=== PATIENT | male | born 1935 | race Caucasian/White ===

== ENCOUNTER 2016-12-04 18:47 | Inpatient (IN) | payer OTHER, MEDICARE ==
[2016-12-04] MEDS ORDERED: ONDANSETRON 4 MG/2 ML VIAL IVP PRN (22:22)
[2016-12-04] MEDS ORDERED: NS 1,000 ML IV SCH (22:30)
[2016-12-05 05:35] LABS: % IMMATURE GRANULYOCYTES 0.4 % (0.0-1.1); ABSOLUTE IMMATURE GRANULOCYTES 0.02 10^3/uL (0.00-0.10); ADD DIFF? NO; ADD MORPH? NO; ADD SCAN? NO; ATYPICAL LYMPHOCYTE FLAG 0 (0-99); FRAGMENT RBC FLAG 0 (0-99); HEMATOCRIT 35.9 % (40.0-51.0); HEMOGLOBIN 11.9 g/dL (13.7-17.5); LEFT SHIFT FLG 0 (0-99); LIPEMIA HEMOLYSIS FLAG 80 (0-99); MEAN CELL HEMOGLOBIN 31.3 pg (27.9-34.1); MEAN CELL HEMOGLOBIN CONCENTR. 33.1 g/dL (32.4-36.7); MEAN CELL VOLUME 94.5 fL (81.5-99.8); MEAN PLATELET VOLUME 10.4 fL (8.7-11.7); PLATELET CLUMPS FLAG 10 (0-99); PLATELET COUNT 170 10^3/uL (150-400); RED CELL DISTRIBUTION WIDTH 13.6 % (11.5-15.2)
[2016-12-05 05:46] LABS: ALANINE AMINOTRANSFERASE 44 IU/L (21-72); ALBUMIN 3.3 g/dL (3.5-5.0); ALKALINE PHOSPHATASE 55 IU/L (38-126); ANION GAP 7 mEq/L (8-16); ASPARTATE AMINOTRANSFERASE 31 IU/L (17-59); BILIRUBIN,TOTAL 0.4 mg/dL (0.1-1.4); CALCIUM 9.8 mg/dL (8.5-10.4); CARBON DIOXIDE 25 mEq/l (22-31); CHLORIDE 108 mEq/L (97-110); CREATININE 1.9 mg/dL (0.7-1.3); GLOMERULAR FILTRATION RATE 34; GLUCOSE 86 mg/dL (70-100); POTASSIUM 4.8 mEq/L (3.5-5.2); SODIUM 140 mEq/L (134-144); TOTAL PROTEIN 5.9 g/dL (6.3-8.2)
--- NOTE | 2016-12-05 07:03 | GHP ---
[f rep st] HISTORY AND PHYSICAL DATE OF ADMISSION: 12/04/2016 SOURCE: The patient is able to provide the majority of the history, appears reliable. at dexter cole supplements history. CHIEF COMPLAINT: Lightheadedness and presyncope. HISTORY OF PRESENT ILLNESS: This is a very pleasant 81-year-old gentleman with a past medical histor y significant for chronic pain related to osteoarthritis and cervical spondylosis, status post a fusi on, who presents to the emergency department today from PCPs office with complaint of progressive lig htheadedness and a near-syncopal episode earlier today. The patient has been following up with PCP t o evaluate cause of patient's lightheadedness. The patient reports it can occur while at rest or fol lowing physical activity. During such episodes, the patient denies any vertigo. No chest pain, palp itations, shortness of breath, changes, or loss in vision. The patient reports that at home he does check his blood pressure and heart rate intermittently. He states his resting heart rate is approxim ately 46, but occasionally at home he will note a drop in his blood pressure with heart rate in the 8 0s and systolic blood pressure in the 80s/40s diastolic. The patient denies any recent illnesses. No head trauma. No headache. No changes in vision. No focal deficits reported. The patient reports that he remains quite active and he does ride his bicycle for 30-40 minutes on a regular basis, as we ll as goes to the gym regularly and lifts weights. He has had significant decline in his quality of his life secondary to the severity of his symptoms. The patient reports that he has been following closely with his PCP for evaluation of his presyncope. He has also been referred to hematology for further evaluation of anemia, which the patient reports has been improving on labs. He denies any event monitoring, but reports that EKG was completed at [facility] office. 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 REVIEW OF SYSTEMS: GENERAL: No fevers or chills. SKIN: The patient reports a slight rash behind h is ear on his neck, but no other sores. ENT: The patient reports chronic rhinorrhea and occasional hoarseness. EYES: The patient denies any acute change in vision or ocular pain. GI: No nausea, vom iting, or abdominal pain. : The patient denies any dysuria or hematuria. Musculoskeletal: The pa je complains of diffuse osteoarthritis, but greatest in his hands. NEURO: No numbness or tinglin g. No headache. The remainder of review of systems negative, except as noted above. ALLERGIES: No known drug allergies. PAST MEDICAL HISTORY: Significant for gout, cervical spondylosis, hypertension, chronic pain, osteoa rthritis and kidney stones. PAST SURGICAL HISTORY: Significant for bilateral carpal tunnel release, cervical fusion, right total hip arthroplasty with revision, bilateral total knee arthroplasty, lithotripsy with stent placement. FAMILY HISTORY: Significant for father with history of sudden cardiac , age 50s. SOCIAL HISTORY: The patient is and lives with his . He drinks 4 to 5 weeks, but not sig nificantly heavily. No tobacco or illicit drugs. CODE STATUS: Full. The patient desires his to act as proxy if needed. PHYSICAL EXAMINATION: Blood pressure on arrival 130/82, heart rate 63, respiratory rate 14, O2 sat 9 2% on room air. Temperature 37.1. GENERAL: No acute distress. Pleasant, elderly gentleman is restin g comfortably in bed, appears slightly younger than stated age. Normocephalic, atraumatic. EYES: E xtraocular muscles intact. Pupils equal, round and symmetric. No scleral icterus or conjunctival in jection. ENT: Mucous membranes appear slightly dry. No oropharyngeal erythema or exudates. NECK: Supple. Trachea midline. CV: Regular rate and rhythm. No murmurs, rubs or gallops appreciated. RESPIRATORY: Lungs are clear to auscultation bilaterally. No wheezes, rales, or rhonchi appreciated . ABDOMEN: Positive bowel sounds, soft, nontender to palpation. No rebound, guarding, or masses ap preciated. : Whitfield in place. No suprapubic tenderness to palpation. EXTREMITIES: No cyanosis, clubbing, or edema appreciated. The patient does have some trace lower extremity edema at the distal lower leg on the left greater than the right. NEURO: Grossly nonfocal exam. The patient without a ny facial drooping. Sits and stands without assist. LABORATORY DATA: Copy from [facility] is brought in by the patient. This was draw n on 11/27/2016. WBC 5.8, H and H 13.2 and 40.6, MCV 96, platelet count 178. Glucose 91, BUN 29, cr eatinine 1.89. Sodium 143, potassium 4.4, chloride 108, CO2 is 25.7, calcium 9.4, total protein 7, a lbumin 3.8, total bili 0.4, 67, AST 27, 29 and GFR 34. The patient with additi onal testing for IgG, quant, IgM 115. Additional studies: Free kappa/lambda and K/L ratio serum with light chains positive for 27.64 mg/L. Lambda light chains free is 30.64. 0.9. EKG: Unable to review. However, the patient reports that PCP plans to bring to hospital in the [facility]. On telemetry, the patient showing AV block with occasional pause and occasional conversion to d ropped beats. ASSESSMENT/PLAN: This is a very pleasant 81-year-old gentleman who presents complaining of progressi ve lightheadedness and presyncopal episode today. 1. Presyncope. Differential diagnosis to consider is cardiac block, as the patient has exhibited so me pauses and dropped some beats consistent with a type 2 AV block, versus less likely PE. The patie nt does not have any dyspnea versus orthostatic hypotension, versus others. The patient will be admi tted to observation on the PCU for telemetry monitoring. Orthostatics will be obtained in the [facility]. Fall precautions will be put into place. The patient will ambulate with assist only. Will monit or closely on telemetry. 2. Anemia. The patient undergoing workup. Slight increase in light chains is present. We will try to obtain remainder of studies. H and H are nearly normal at this time and no evidence of bleeding. We will continue to monitor closely. 3. Chronic pain. Resume the patient's home pain medications. 4. Fluids, electrolytes and nutrition: IV fluids overnight for some gentle hydration. Electrolyte replacement p.r.n. and diet will be cardiac. 5. GI: The patient with a history of GERD. Will continue to monitor closely. 6. Benign essential hypertension. We will hold off on the patient's lisinopril and HCTZ at this leslie e secondary to mildly elevated blood pressures. The patient denies any previous history of chronic k idney disease, but appears this could be progressive in the setting of patient's testing, as above. 7. Benign prostatic hypertrophy. Continue tamsulosin. 8. Trazodone for insomnia. Continue home medication. 9. Code status: Full. 10. Disposition: The patient admitted to observation on the PCU for close monitoring on telemetry. /[id number]/MODL
--- NOTE | 2016-12-05 08:44 | CPEKG ---
Heart Rate: 52 RR Interval: 1154 P-R Interval: 306 QRSD Interval: 160 QT Interval: 464 QTC Interval: 432 P [place]: 0 QRS [place]: -95 T Wave [place]: -23 EKG Severity - ABNORMAL ECG - EKG Impression: SINUS RHYTHM EKG Impression: FIRST DEGREE AV BLOCK EKG Impression: RBBB AND LAFB Electronically Signed By: Anneliese Birmingham 05-Dec-2016 09:54:27
[2016-12-05] MEDS ORDERED: ENOXAPARIN 40 MG/0.4 ML SYR SC SCH (09:00)
[2016-12-05] MEDS ORDERED: NS 1,000 ML IV ONE (13:50)
--- NOTE | 2016-12-05 14:49 | HOSPPROG ---
Hospitalist Progress Note Assessment/Plan: # acute presyncope- patient with dizziness sent from clinic for evaluation- the patient remains disease even after initial hydration and monitoring Telemetry (personally reviewed and interpreted) remains in sinus heart rate 50s to 70s oxygen saturations 95% on RA - hold antihypertensive - normal saline bolus - hold tamsulosin - trans-thoracic echocardiogram # acute kidney injury- creatinine 1.9 -unclear history of recent use of antihypertensives including ISA inhibitor and hydrochlorothiazide - check urinalysis - check renal ultrasound - normal saline bolus # proph - lovenox as long as GFR remains above 30 # diet- cardiac # disposition- greater than 2 midnights as the patient is presenting with persistent complaints of dizziness and presyncope requiring evaluation I have discussed the case with the RN- plan for renal imaging in the a.m. followed by a treadmill stress testing Subjective: still dizzy Objective: Vital Signs Temp Pulse Resp BP Pulse Ox 36.9 C 50 L 14 153/90 H 95 12/05/16 11:24 12/05/16 11:24 12/05/16 11:24 12/05/16 11:24 12/05/16 11:24 Laboratory Results 12/05/16 04:33 12/05/16 04:33 12/04/16 12/05/16 12/06/16 05:59 05:59 05:59 Intake Total 800 Output Total 325 Balance 475 - Physical Exam Constitutional: appears nourished Eyes: anicteric sclera Ears, Nose, Mouth, Throat: moist mucous membranes Cardiovascular: regular rate and rhythym, systolic murmur Respiratory: no respiratory distress Gastrointestinal: normoactive bowel sounds Genitourinary: no bladder fullness Skin: warm Musculoskeletal: No asymmetric calves Neurologic: AAOx3 Psychiatric: interacting appropriately Lymph, Heme, Immunologic: no cervical LAD ICD10 Worksheet Patient Problems: Problems Problem Status Onset Arthrodesis status Acute Cervical radiculitis Acute Neck pain Acute
--- NOTE | 2016-12-05 16:22 | ECHO ---
[email or web address] [address] [address] Main: [phone] Fax: Transthoracic Echocardiogram Name: CARMEN GARSIA MR#: [id number] Study Date: 12/05/2016 Study Time: 03:10 PM Date of : 1935 Age: 81 year(s) Height: 185.4 cm (73 in.) Weight: 89.81 kg (198 lb.) BSA: 2.14 m2 Gender: Male Examination: Echo Indication: Image Quality: Contrast: Requested by: Noy Henriquez BP: 153 mmHg/90 mmHg Heart Rate: Rhythm: Indication: Procedure Staff Ordering Physician: RULA Bar Manager: Esteban Bui Reading Physician: Israel Reynolds Conclusions: ? Normal global systolic LV function (EF 72 %). ? Normal RV function. ? The left atrium is mildly dilated. ? Trivial mitral valve regurgitation. ? Trivial to mild aortic valve regurgitation. ? Trivial tricuspid valve regurgitation. Measurements: Chambers Valvular Assessment AV/MV Valvular Assessment TV/PV Normal Normal Normal Name Value Range Name Value Range Name Value Range Ao [place] (MM): 3.7 cm (2.2 cm-3.7 AV Vmax: 1.30 m/s (1 m/s-1.7 TR Vmax: 2.36 mm/s ( - ) cm) m/s) TR PGmax: 22 mmHg ( - ) IVSd (2D): 1.2 cm (0.6 cm-1.1 AV maxP mmHg ( - ) syst. PAP: 27 mmHg ( - ) cm) LVOT Vmax: 0.88 m/s (0.7 m/s-1.1 PV Vmax: 0.72 cm/s (0.6 m/s-0.9 LVDd (2D): 4.7 cm (4.2 cm-5.9 m/s) m/s) cm) AR (PHT): 662 ms ( - ) PV PGmax: 2 mmHg ( - ) LVDs (2D): 2.8 cm (2.1 cm-4 MV E Vmax: 0.59 cm/s ( - ) cm) MV A Vmax: 0.44 cm/s ( - ) LVPWd (2D): 1.0 cm (0.6 cm-1 MV E/A: 1.34 ( - ) cm) LVEF (2D): 72 (>=54 %) Continued Measurements: Chambers Valvular Assessment AV/MV Valvular Assessment TV/PV Name Value Name Value Name Value LA Area: 26.5 cm? MV E/E' Septal: 13.10 CVP (est.): 5 LA Volume: 92 ml MV E/E' Lateral: 8.60 LA Volume Index: 43.0 ml/m? AR Vmax: 2.38 cm/s Patient: CARMEN GARSIA Study Date: 12/05/2016 Page 1 of 2 03:10 PM Findings: Left Ventricle: Normal size left ventricle. Normal global systolic LV function (EF 72 %). Diastolic LV function normal for age. Right Ventricle: Normal size right ventricle. Normal RV function. Left Atrium: The left atrium is mildly dilated. Right Atrium: The right atrium is normal in size. Mitral Valve: The mitral valve is normal in appearance and function. Trivial mitral valve regurgitation. Aortic Valve: The aortic valve is normal in appearance and function. The aortic valve is tri-leaflet and functions normally. Trivial to mild aortic valve regurgitation. Tricuspid Valve: The tricuspid valve is normal in appearance and function. Trivial tricuspid valve regurgitation. Pulmonic Valve: The pulmonic valve is normal in appearance and function. Great Vessels: Pericardium: No pericardial effusion. Bradycardia (No Signature Object) Patient: CARMEN GARSIA Study Date: 12/05/2016 Page 2 of 2 03:10 PM [id number]
--- NOTE | 2016-12-05 16:28 | ASMTCMCOM ---
CM Note CM Note Notes: Case Management met with patient and regarding discharge poc. Discussed the possibility of home health care, patient declines. Anticipate discharge home with when medically stable. Case Management available for changes/needs. Date Signed: 12/05/2016 04:27 PM Electronically Signed By:Marilu Yang RN
[2016-12-05 18:40] LABS: COLOR YELLOW; LEUKOCYTE ESTERASE,URINE NEGATIVE (NEGATIVE); NITRITE,URINE NEGATIVE (NEGATIVE)
[2016-12-05] MEDS ORDERED: TAMSULOSIN HCL 0.4 MG CAP PO SCH (21:00)
[2016-12-06 06:04] LABS: ANION GAP 11 mEq/L (8-16); CALCIUM 9.7 mg/dL (8.5-10.4); CARBON DIOXIDE 22 mEq/l (22-31); CHLORIDE 110 mEq/L (97-110); CREATININE 1.7 mg/dL (0.7-1.3); GLOMERULAR FILTRATION RATE 39; GLUCOSE 82 mg/dL (70-100); POTASSIUM 4.4 mEq/L (3.5-5.2); SODIUM 143 mEq/L (134-144)
[2016-12-06] MEDS ORDERED: REGADENOSON 0.4 MG/5 ML SYR IVP ONE (11:15)
--- NOTE | 2016-12-06 12:10 | CPIP ---
[f rep st] INVASIVE CARDIAC PROCEDURE PROCEDURE: Nuclear stress test. The patient came to the hospital due to chief complaint of having syncope. He has been having a long history of feeling lightheaded and intermittently being really quite lighth eaded. There was nothing specifically that caused it. The episode happened when he was working out earlier, but he has had it at times when he is resting and not doing anything at all. He has been having some of these symptoms since May, and when he saw his physician, there was an ev aluation for anemia to make sure that was not causing the symptoms. Symptoms have persisted and prog ressed now to syncope. He had given informed consent to do a nuclear stress test. He got on the sia admill, and as I watched, his EKG shows the right bundle branch block, left anterior fascicular block , and then first degree block, and I decided to stop the test at 20 seconds. He was not dizzy, light headed, or having of symptoms, but it seemed quite clear that he needs a pacemaker. Dr. Thony Kaur was consulted from the electrophysiology service, and he is going to arrange for further care for th e patient with a pacemaker. He has talked to the patient about the pacemaker, and the patient is goi ng to talk to his . All the patient's questions were answered by Thony and myself, and we are going to just wait until he talks to his and decide what to do further. But at this point in ti me, we do not want to stress the patient. He has already had resting nuclear images done. There wer e no complications from his 20 seconds on the treadmill. He will be seen in followup in clinic by my self or Dr Kaur, and we can arrange for nuclear imaging study to be completed if it is indicated down the road. /[id number]/MODL
[2016-12-06] MEDS ORDERED: DIAZEPAM 5 MG TAB PO ONE (12:43)
[2016-12-06] MEDS ORDERED: BACITRACIN IRRIGATION/NS 50,000 UNITS/1,000 ML BTL IRR ONE (12:43)
[2016-12-06] MEDS ORDERED: diphenhydrAMINE 25 MG CAP PO ONE (12:43)
[2016-12-06] MEDS ORDERED: NS 1,000 ML IV ONE (12:43)
[2016-12-06] MEDS ORDERED: ceFAZolin 2 GM/DEXTROSE 100 ML IV ONE (13:03)
[2016-12-06 13:37] LABS: % IMMATURE GRANULYOCYTES 0.2 % (0.0-1.1); ABSOLUTE IMMATURE GRANULOCYTES 0.01 10^3/uL (0.00-0.10); ADD DIFF? NO; ADD MORPH? NO; ADD SCAN? NO; ATYPICAL LYMPHOCYTE FLAG 10 (0-99); FRAGMENT RBC FLAG 0 (0-99); HEMATOCRIT 38.5 % (40.0-51.0); HEMOGLOBIN 12.9 g/dL (13.7-17.5); LEFT SHIFT FLG 0 (0-99); LIPEMIA HEMOLYSIS FLAG 80 (0-99); MEAN CELL HEMOGLOBIN 31.7 pg (27.9-34.1); MEAN CELL HEMOGLOBIN CONCENTR. 33.5 g/dL (32.4-36.7); MEAN CELL VOLUME 94.6 fL (81.5-99.8); MEAN PLATELET VOLUME 10.2 fL (8.7-11.7); PLATELET CLUMPS FLAG 0 (0-99); PLATELET COUNT 180 10^3/uL (150-400); RED BLOOD CELL COUNT 4.07 10^6/uL (4.40-6.38); RED CELL DISTRIBUTION WIDTH 13.4 % (11.5-15.2)
[2016-12-06 13:44] LABS: INR 1.08 (0.83-1.16); PROTIME(PATIENT) 13.9 SEC (12.0-15.0)
[2016-12-06 13:45] LABS: APTT 28.7 SEC (23.0-38.0)
[2016-12-06] MEDS ORDERED: LIDOCAINE 1% 300 MG/30 ML SDV ONE (14:07)
[2016-12-06] MEDS ORDERED: LIDO/EPI 1% **for epidural** 30 ML SDV ONE (14:07)
[2016-12-06] MEDS ORDERED: BUPIVACAINE 0.5% 30 ML SDV ONE (14:07)
[2016-12-06] MEDS ORDERED: fentaNYL 100 MCG/2 ML INJ ONE ×2 (14:08→15:13)
[2016-12-06] MEDS ORDERED: MIDAZOLAM 2 MG/2 ML VIAL ONE ×2 (14:09→15:14)
[2016-12-06] MEDS ORDERED: IOPAMIDOL (ISOVUE-300) 150 ML BTL ONE (15:07)
--- NOTE | 2016-12-06 16:42 | CPEKG ---
Heart Rate: 64 RR Interval: 938 P-R Interval: 176 QRSD Interval: 154 QT Interval: 472 QTC Interval: 487 P [place]: 107 QRS [place]: -72 T Wave [place]: 117 EKG Severity - ABNORMAL ECG - EKG Impression: A-V DUAL-PACED RHYTHM Electronically Signed By: Nader Delgadillo 07-Dec-2016 11:04:42
--- NOTE | 2016-12-06 18:41 | SOAPPROG ---
SOAP Progress Note Assessment/Plan: Assessment: 1. Long-standing left hydroureteronephrosis w/ renal atrophy - likely due to proximal ureteral stricturing from previously-impacting ureteral calculus. He is currently asymptomatic from this condition. 2. Prostate cancer, s/p brachytherapy in ~ 2004. Plan: 1. No acute intervention is warranted. 2. Instructed pt. to [facility] w/ Dr. Durate following discharge. See full dictated consult note (Dict. # [id number]). Objective: Vital Signs Temp Pulse Resp BP Pulse Ox 36.7 C 68 20 163/83 H 94 12/06/16 16:50 12/06/16 16:50 12/06/16 16:50 12/06/16 16:50 12/06/16 16:50 Laboratory Results 12/06/16 13:20 12/06/16 04:35 12/05/16 12/06/16 12/07/16 05:59 05:59 05:59 Intake Total 800 400 Output Total 325 1625 Balance 475 -1225 PT 13.9 SEC (12.0-15.0) 12/06/16 13:20 INR 1.08 (0.83-1.16) 12/06/16 13:20 ICD10 Worksheet Patient Problems: Problems Problem Status Onset Cervical radiculitis Acute Neck pain Acute Arthrodesis status Acute
--- NOTE | 2016-12-06 19:42 | GCON ---
[f rep st] CONSULTATION UROLOGY CONSULTATION DATE OF CONSULTATION: 12/06/2016 REFERRING PHYSICIAN: Hospitalist Service REASON FOR CONSULTATION: Left hydronephrosis. HISTORY: This is an 81-year-old gentleman who was admitted for evaluation of syncope earlier today. As part of an initial evaluation, patient underwent a noncontrast CT scan of the abdomen and pelvis, and this revealed left hydronephrosis and hydroureter which is detailed below. The patient denies a ny recent dysuria, gross hematuria, changes in his typical voiding pattern, flank pain, abdominal leonides n, no recent treatment for UTIs. He does have a longstanding history of mildly obstructing urinary symptoms that include some decrease d force of stream and nocturia for which he has been taking Flomax. He also has a prior history of t reatment for prostate cancer, treated with brachytherapy in approximately 1999. He also has a history of recurrent nephrolithiasis for at least the last 15 years. 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 He subsequently underwent left ureteroscopy and balloon dilation of l eft ureteral stricture by Dr. Duarte in March 2015. The patient has not been seen for urologic fo llowup since February 2016, and has not had any new problems since that time. PAST MEDICAL HISTORY: Notable for an admission to evaluate recent syncope, hypertension, prostate ca ncer (as above), recurrent nephrolithiasis (as above), known history of left proximal ureteral strict ure, chronic pain. PAST SURGICAL HISTORY: Includes ureteroscopy, left ureteroscopy in March 2015 and October 2014 (as above), cervical fusion, right total hip arthroplasty with subsequent revision, bilateral total knee arthroplasty, extracorporeal shockwave lithotripsy remotely. ADMISSION MEDICATIONS: Include tamsulosin 0.4 mg daily, lisinopril/HCTZ 10/12.5 mg daily, trazodone 150 mg q.h.s., vitamin supplements. ALLERGIES: None known. FAMILY HISTORY: Not contributory. SOCIAL HISTORY: The patient and his live in the [facility]. He denies use of tobacco or alc ohol products. REVIEW OF SYSTEMS: Unremarkable, other than mentioned above in the HPI and admission for evaluation of syncope (also, as noted above). PHYSICAL EXAM: GENERAL: Well-developed, well-nourished white male, lying supine in bed in no acute distress. He is about to eat a sandwich. VITAL SIGNS: Blood pressure 163/83, pulse 68, respiration s 20, temperature 36.7 Celsius, oxygen saturation is 94% on room air. Height 187 cm, weight 89 kg, BMI 25.4. HEENT: Normocephalic, atraumatic. NECK: Supple. CHEST: Un labored respiratory pattern. HEART: Regular rate. ABDOMEN: Soft without palpable abnormalities. BACK: No CVA tenderness. NEUROLOGIC: He is alert and oriented. He answers all questions appropria tely with normal mood and affect. PERTINENT LABORATORY: Chemistry panel notable for creatinine 1.7, which compares to 1.9. According to review of my office chart, this is close to baseline. Admission urinalysis was completely negative. RADIOGRAPHIC STUDIES: Noncontrast abdominopelvic CT scan today: Upon my review, notable for the fol lowing renal calculi: Punctate right upper pole and right mid pole, 5 mm right upper pole, 6 mm righ t lower pole, and 4 mm left lower pole calculi. There was severe left hydronephrosis and hydroureter down to about L4. There appears to be 1 or more small calculi that are intraluminal or embedded in the ureteral wall, or both. The ureter appears to be normal distal to that point. There was also si gnificant left renal cortical atrophy. IMPRESSION: 1. Fairly longstanding chronic left hydronephrosis and hydroureter due to a left proximal ureteral s tricture. 2. Bilateral asymptomatic nephrolithiasis. 3. Significant left renal cortical atrophy. 4. Possible left proximal ureteral calculi: As detailed above in description of the CT radiographic findings. 5. Remote history of prostate cancer, status post brachytherapy. 6. Long-standing lower urinary tract symptoms, fairly well controlled with Flomax. PLAN: 1. I do not believe any of his urologic issues are related to his admission issues. He appears to h ave been totally asymptomatic since last seeing Dr. Duarte in February 2016. Nonetheless, urologic follow up is warranted. 2. Please have the patient schedule an appointment with Dr. Duarte following hospital discharge. I have also impressed upon the importance of him to do the same. 3. I have also told him it is very important that he drink large amounts of water, at least 2 L shaquille y, to reduce his risk of forming more stones. Particularly since he has essentially 1 functional kid brea and at least 2 stones on that side. He admittedly drinks only 1-2 small cups of water daily. /[id number]/MODL
[2016-12-06] MEDS: ACETAMINOPHEN 325 MG TAB PO PRN (20:13)
--- NOTE | 2016-12-06 21:37 | HOSPPROG ---
Hospitalist Progress Note Assessment/Plan: # acute presyncope- patient with dizziness sent from clinic for evaluation- the patient remains disease even after initial hydration and monitoring Telemetry (personally reviewed and interpreted) remains in sinus heart rate 50s to 70s - EKG with trifascicular block oxygen saturations 95% on RA Echo(reviewed ) normal LV function - carotid doppler (reviewed ) normal flow - hold antihypertensives - received saline bolus - hold tamsulosin - plan for pacemaker placement today - likely complete cardiac risk stratification as outpt if stable # acute kidney injury- creatinine 1.9 -> 1.7 unclear history of recent use of antihypertensives including ISA inhibitor/hydrochlorothiazide (when not rxd by MD) urinalysis bland - renal US (reviewed ) sever left hydronephrosis - check renal ultrasound - normal saline boluscont hold BP meds - consult urology for recs related to hydronephrosis # proph - lovenox as long as GFR remains above 30 # diet- cardiac # disposition- greater than 2 midnights as the patient is presenting with persistent complaints of dizziness and presyncope requiring evaluation I have discussed the case with Cardiology - with trifasciculr block and persistent sx - pt has clear indication for pacemaker Subjective: remains dizzy overnight Objective: Vital Signs Temp Pulse Resp BP Pulse Ox 36.7 C 66 18 165/91 H 98 12/06/16 19:43 12/06/16 19:43 12/06/16 19:43 12/06/16 19:43 12/06/16 19:43 Laboratory Results 12/06/16 13:20 12/06/16 04:35 12/05/16 12/06/16 12/07/16 05:59 05:59 05:59 Intake Total 800 400 Output Total 325 1625 300 Balance 475 -1225 -300 PT 13.9 SEC (12.0-15.0) 12/06/16 13:20 INR 1.08 (0.83-1.16) 12/06/16 13:20 - Physical Exam Constitutional: appears nourished Eyes: anicteric sclera Ears, Nose, Mouth, Throat: moist mucous membranes Cardiovascular: regular rate and rhythym, systolic murmur Respiratory: no respiratory distress Gastrointestinal: normoactive bowel sounds Genitourinary: no bladder fullness Skin: warm Musculoskeletal: No asymmetric calves Neurologic: AAOx3 Psychiatric: interacting appropriately Lymph, Heme, Immunologic: no cervical LAD ICD10 Worksheet Patient Problems: Problems Problem Status Onset Arthrodesis status Acute Cervical radiculitis Acute Neck pain Acute
[2016-12-07 04:30] VITALS: RESP 16
[2016-12-07 05:58] LABS: % IMMATURE GRANULYOCYTES 0.3 % (0.0-1.1); ABSOLUTE IMMATURE GRANULOCYTES 0.02 10^3/uL (0.00-0.10); ADD DIFF? NO; ADD MORPH? NO; ADD SCAN? NO; ATYPICAL LYMPHOCYTE FLAG 0 (0-99); FRAGMENT RBC FLAG 0 (0-99); HEMATOCRIT 37.6 % (40.0-51.0); HEMOGLOBIN 12.9 g/dL (13.7-17.5); LEFT SHIFT FLG 0 (0-99); LIPEMIA HEMOLYSIS FLAG 90 (0-99); MEAN CELL HEMOGLOBIN 31.9 pg (27.9-34.1); MEAN CELL HEMOGLOBIN CONCENTR. 34.3 g/dL (32.4-36.7); MEAN CELL VOLUME 92.8 fL (81.5-99.8); MEAN PLATELET VOLUME 9.8 fL (8.7-11.7); PLATELET CLUMPS FLAG 0 (0-99); PLATELET COUNT 165 10^3/uL (150-400); RED BLOOD CELL COUNT 4.05 10^6/uL (4.40-6.38); RED CELL DISTRIBUTION WIDTH 13.2 % (11.5-15.2)
[2016-12-07 06:12] LABS: ANION GAP 11 mEq/L (8-16); CALCIUM 9.9 mg/dL (8.5-10.4); CARBON DIOXIDE 19 mEq/l (22-31); CHLORIDE 111 mEq/L (97-110); CREATININE 1.5 mg/dL (0.7-1.3); GLOMERULAR FILTRATION RATE 45; GLUCOSE 86 mg/dL (70-100); POTASSIUM 4.4 mEq/L (3.5-5.2); SODIUM 141 mEq/L (134-144)
[2016-12-07 07:33] VITALS: TEMP 98.1
--- NOTE | 2016-12-07 08:57 | CPEKG ---
Heart Rate: 63 RR Interval: 952 P-R Interval: 184 QRSD Interval: 152 QT Interval: 440 QTC Interval: 451 P [place]: 53 QRS [place]: -78 T Wave [place]: 90 EKG Severity - ABNORMAL ECG - EKG Impression: SINUS RHYTHM EKG Impression: IVCD, CONSIDER ATYPICAL RBBB EKG Impression: LEFT VENTRICULAR HYPERTROPHY EKG Impression: CONSIDER ANTERIOR INFARCT Electronically Signed By: Anneliese Birmingham 07-Dec-2016 11:55:02
--- NOTE | 2016-12-07 10:02 | EPPROC ---
Electrophysiology Procedure Note: PROCEDURE PERFORMED: Implantation of an A/V Pacemaker Subclavian vein angiography Fluoroscopy INDICATION: This is a 81 yr old with presyncope, lightheadedness and trifascicular block. In view of the episodes of lightheadedness and trifascicular block, it was decided to implant a dual chamber pacemaker. PROCEDURE NOTE: Patient presented to the cardiac catheterization laboratory in a fasting, post absorptive state. Cardiac medical laboratory technical officer nurse administered moderate sedation. The left infraclavicular area was prepped and draped in the usual sterile fashion. Lidocaine plus bupivacaine was used for local anesthesia. Left subclavian venography was performed by injection of iodinated contrast into the left antecubital vein. This was done to assure patency of the vein and also to assess for any anatomical aberrations. Using a combination of blunt and sharp dissection and electrocautery, the dissection was carried down to the prepectoral fascia. All bleeding was controlled with electrocautery. Fluoroscopy was utilized during the entire procedure for venous access and placement of the leads. Using the usual technique, left cephalic vein access was attempted but no cephalic vein was found. Hence, it was decided to try subclavian access. Using usual technique, left subclavian access was obtained. A glidewire was placed. Through this initially a 9F and later a 7F sheath was passed. Placement of the guidewires into the venous system was confirmed by low-pressure blood return and also by visualizing the guidewires advancing into the inferior vena cava. A purse string suture was applied around the guidewires. An active fixation ventricular lead was advanced into the right ventricular apex and screwed in place. An active fixation atrial lead was advanced into the right atrial appendage and screwed in place. The peel away sheaths were removed. Pacing thresholds, sensing parameters and lead impedances were measured. There was no diaphragmatic stimulation at maximum output. The leads were sutured to the prepectoral fascia with 3 nonabsorbable sutures each. The pocket was created and it was flushed using antibiotic solution. It was inspected for any bleeding. The leads were attached to the pacemaker securely. The pacemaker was inserted into the pocket and secured in place with a nonabsorbable suture. Fluoroscopy was performed in [place] and [place] planes to verify right-sided placement of the leads. Also fluoroscopy of the pacemaker pocket was performed. The pacemaker pocket was closed in 3 layers with absorbable vicryl sutures. Steristrips were placed. Appropriate dressing was applied. The patient left the cardiac catheterization laboratory in stable condition. Serial Numbers: Device: [employer] Huey Assurity MRI SN [id number] Atrial Lead: [employer] Huey Tendril 8TC SN [id number] Ventricular Lead: [employer] Huey Tendril 8TC SN [id number] Stimulation Thresholds & Impedance Measurements: Atrial Lead 3.1mV, 0.4@0.5ms, 477Ohms Ventricular Lead 14.6mV, 0.5@0.5ms, 496Ohms [place] Pacing Parameters Pacing mode: DDD Lower rate: 50 Upper tracking rate: 120 Upper sensor rate: 120 Patient Problems: Problems Problem Status Onset Arthrodesis status Acute Cervical radiculitis Acute Neck pain Acute
[2016-12-07] MEDS: ACETAMINOPHEN 325 MG TAB PO PRN (10:17)
[2016-12-07 11:59] VITALS: BP 138/85; PULSE 65; O2SAT 96
--- NOTE | 2016-12-07 17:05 | ASDISCHSUM ---
Discharge Information Plan Status:Home with No Needs Medically Cleared to Leave:12/07/2016 Discharge Date:12/07/2016 12:39 PM CM D/C Disposition:Home, Routine, Self-Care ADT D/C Disposition:Home, Routine, Self-Care Projected Discharge Date:12/07/2016 12:00 AM Transportation at D/C: Discharge Delay Reason: Follow-Up Date:12/07/2016 12:00 AM Discharge Slot: Final Diagnosis: Placement Information Patient Contact Information Contact Name:NIKKI Relationship: Address:[address] City:[place] Alternate Phone: [facility]/Zip Code:[place] [address] Email: Financial Information Financial Class: Primary Plan Desc:MEDICARE INPATIENT Primary Plan Number:[id number] Secondary Plan Desc:[employer]/MDR SUPPLEMENT Secondary Plan Number:[id number] Assessment Information [facility] CM Progress Note CM Note CM Note Notes: Case Management met with patient and regarding discharge poc. Discussed the possibility of home health care, patient declines. Anticipate discharge home with when medically stable. Case Management available for changes/needs. Date Signed: 12/05/2016 04:27 PM Electronically Signed By:Marilu Yang RN Intervention Information Intervention Type:*EDDIE-Signed Date of Service:12/05/2016 09:27 AM Patient Type:Observation Staff Member:Mady Michael Hours: Discipline: Severity: Comment:
--- NOTE | 2016-12-07 17:28 | GDS ---
[f rep st] DISCHARGE SUMMARY ADMIT DIAGNOSIS: Syncope DISCHARGE DIAGNOSES: 1. Syncope. 2. Pacemaker placement. HISTORY OF PRESENT ILLNESS: The patient came into the hospital having had a syncopal episode. We we re asked to consult. It was noted as he started a treadmill stress test that he had a trifascicular block with pauses. The test was stopped, and he was set up for a pacemaker placement with Dr. Tiara Kaur yesterday afternoon. A [employer] Huey pacemaker was placed with no complications. He was returned to PCU for overnight observation, where he has done well. He has a paced rhythm with the pacer check today showing normal function. He has been up ambulating and is eager for discharge. MEDICATIONS: He will go home on: Trazodone 150 mg at bedtime, lisinopril/hydrochlorothiazide 10/12. 5 mg daily, vitamin B daily, multivitamin 1 daily, herbal supplements 1 daily, Tylenol 325 mg 1 table t daily as needed, Flomax 0.4 mg at bedtime, Tylenol 325 mg to 650 mg every 4 hours as needed for leonides n. ALLERGIES: He has no known allergies. EXAM: VITAL SIGNS: On day of discharge, blood pressure 138/85, heart rate 65, and regular, oxygen s aturation 96%. Pacemaker placement on 12/06/2016. A dual chamber pacemaker was placed due to trifascicular block an d syncopal episode. The device is a [employer] Huey device. Pacing mode is DDD, lower rate 50, upper track ing rate 120, upper sensor rate 120. DISCHARGE PLAN: He will follow up with Dr. Kaur in 1 month. In 1 week he will have his pacemaker ch amrita and wound check. He is to have a nuclear stress test done prior to his visit with Dr. Kaur in 1 month. All appointments were made. Pacemaker site is intact with no ecchymoses or induration. Mild tenderness at site. He will take Ty lenol for discomfort. He has no restrictions after 2 weeks. He understands not to lift his arm over shoulder level for the next 2 weeks. Incision care was discussed with he and his . Once the wo und check has been done, then he is to keep it clean with soap and water, and no ointments. He does understand this. At this time, he is ready for discharge. /[id number]/MODL
--- NOTE | 2016-12-11 10:43 | PQFORM ---
PHYSICIAN QUERY FORM Needs Your Response This query form is being sent to you to assure this patient record is coded properly. Please respond to the question below: HOME SALES SERVICE PROFESSIONAL QUESTION: Dear Dr. Henriquez, In reviewing this patients medical record it was noted the patient had the diagnosis of 'Acute kidney injury.' In the Hospitalist Progress Note dated -12/06 patient had a creatinine level of 1.9 with the diagnosis of 'acute kidney injury.' Creatinine level was 1.9 on 12/05, 1.7 on 12/06, and 1.5 on . After study, should the diagnosis of 'Acute kidney injury' be included in the Discharge summary? ____x_ Yes No Other more appropriate diagnosis Unable to determine Thank you [facility] HIM/Coding Dept. [phone] INSTRUCTIONS FOR RESPONSE: Answer question by clicking on the "Edit Document" button. Move cursor to area below the stars. When complete, hit "Save." Click on the "Sign" button, then click "Sign" again. Type in your PIN and hit "Enter." MTDD
== END 2016-12-07 12:39 | disposition home or self-care (01) | DRG 243 ==
LOC: F2W 20:00 → OBSVTOIN 12-06 14:24
PROVIDERS: ADMIT Internal Medicine; ATTEND Internal Medicine
DX: I45.3 Trifascicular block (principal); N17.9 Acute kidney failure, unspecified; G89.29 Other chronic pain; I10 Essential (primary) hypertension; D64.9 Anemia, unspecified; N40.0 Benign prostatic hyperplasia without lower urinary tract symptoms; N20.0 Calculus of kidney; G47.00 Insomnia, unspecified; Z98.1 Arthrodesis status; Z85.46 Personal history of malignant neoplasm of prostate; Z96.641 Presence of right artificial hip joint; Z96.653 Presence of artificial knee joint, bilateral
CPT/HCPCS: A9500; C1769; C1785; C1898; G0378; G0379; J0690; J1650; J2250; J2785; J3010; Q9967

== ENCOUNTER → 2016-12-25 | Outpatient (CLI) | payer OTHER, MEDICARE | LOC: BHLMT 13:00 | PROVIDERS: ATTEND Internal Medicine Cardiovascular Disease | DX: R55 Syncope and collapse (principal); Z95.0 Presence of cardiac pacemaker | CPT/HCPCS: 78452; 93017; A9500 ==